=== PATIENT | male | born 1975 | race Caucasian/White ===

== ENCOUNTER → 2017-03-12 | Outpatient (CLI) | payer OTHER | LOC: M PLARAD 07:38 | DX: M51.26 Other intervertebral disc displacement, lumbar region (principal); M51.27 Other intervertebral disc displacement, lumbosacral region; M12.88 Other specific arthropathies, not elsewhere classified, other specified site | CPT/HCPCS: 72148 ==

== ENCOUNTER → 2017-05-07 | Outpatient (CLI) | payer OTHER | LOC: M PAIN 11:30 | DX: G89.29 Other chronic pain (principal); M54.5 Low back pain; M47.816 Spondylosis without myelopathy or radiculopathy, lumbar region; M47.817 Spondylosis without myelopathy or radiculopathy, lumbosacral region; M51.17 Intervertebral disc disorders with radiculopathy, lumbosacral region; G47.30 Sleep apnea, unspecified; F17.210 Nicotine dependence, cigarettes, uncomplicated; K21.9 Gastro-esophageal reflux disease without esophagitis; Z79.899 Other long term (current) drug therapy; Z88.0 Allergy status to penicillin; Z88.6 Allergy status to analgesic agent | CPT/HCPCS: G0463 ==

== ENCOUNTER → 2017-05-27 | Outpatient (CLI) | payer OTHER ==
[~2017-05-27] MED LIST: BUPIVACAINE HCL 0.25% 30 ML VIAL As Ordered; ISOVUE-M 300 61% 15ML VIAL (Q9967) As Ordered; LIDOCAINE 1% SDV INJ 30 ML VIAL As Ordered; TRIAMCINOLONE ACETONIDE SUSP 40 MG/ML VIAL (J3301) As Ordered; diazePAM 5 MG TAB As Ordered; oxyCODONE 5MG TAB As Ordered
== END ==
LOC: M PAIN 08:30
DX: G89.29 Other chronic pain (principal); M47.816 Spondylosis without myelopathy or radiculopathy, lumbar region; M47.817 Spondylosis without myelopathy or radiculopathy, lumbosacral region; I10 Essential (primary) hypertension; G47.30 Sleep apnea, unspecified; F17.210 Nicotine dependence, cigarettes, uncomplicated; Z79.899 Other long term (current) drug therapy; Z88.0 Allergy status to penicillin; Z88.6 Allergy status to analgesic agent
CPT/HCPCS: J3301

== ENCOUNTER → 2017-07-02 | Outpatient (CLI) | payer OTHER | LOC: M PAIN 09:00 | DX: M47.816 Spondylosis without myelopathy or radiculopathy, lumbar region (principal); M54.5 Low back pain; I10 Essential (primary) hypertension; G47.30 Sleep apnea, unspecified; F17.210 Nicotine dependence, cigarettes, uncomplicated; Z79.899 Other long term (current) drug therapy; Z88.0 Allergy status to penicillin; Z88.6 Allergy status to analgesic agent | CPT/HCPCS: G0463 ==

== ENCOUNTER → 2017-08-26 | Outpatient (CLI) | payer OTHER | LOC: M PAIN 08:30 | DX: M47.816 Spondylosis without myelopathy or radiculopathy, lumbar region (principal); M54.5 Low back pain; I10 Essential (primary) hypertension; F17.210 Nicotine dependence, cigarettes, uncomplicated; Z79.899 Other long term (current) drug therapy; Z88.8 Allergy status to other drugs, medicaments and biological substances | CPT/HCPCS: G0463 ==

== ENCOUNTER → 2017-10-07 | Outpatient (CLI) | payer OTHER | LOC: M PAIN 08:30 | DX: M47.816 Spondylosis without myelopathy or radiculopathy, lumbar region (principal); M54.5 Low back pain; I10 Essential (primary) hypertension; Z79.899 Other long term (current) drug therapy; Z88.0 Allergy status to penicillin; Z88.8 Allergy status to other drugs, medicaments and biological substances | CPT/HCPCS: G0463 ==

== ENCOUNTER → 2017-11-18 | Outpatient (CLI) | payer OTHER ==
[~2017-11-18] MED LIST changes: -TRIAMCINOLONE ACETONIDE SUSP 40 MG/ML VIAL (J3301) As Ordered; -diazePAM 5 MG TAB As Ordered; -oxyCODONE 5MG TAB As Ordered
== END ==
LOC: M PAIN 08:30
DX: M47.816 Spondylosis without myelopathy or radiculopathy, lumbar region (principal); M47.817 Spondylosis without myelopathy or radiculopathy, lumbosacral region; F17.210 Nicotine dependence, cigarettes, uncomplicated; I10 Essential (primary) hypertension; K21.9 Gastro-esophageal reflux disease without esophagitis; G47.30 Sleep apnea, unspecified; Z79.899 Other long term (current) drug therapy; Z88.0 Allergy status to penicillin; Z88.6 Allergy status to analgesic agent
CPT/HCPCS: Q9967

== ENCOUNTER → 2017-12-13 | Outpatient (CLI) | payer OTHER | LOC: M PAIN 09:45 | DX: M47.816 Spondylosis without myelopathy or radiculopathy, lumbar region (principal); M54.5 Low back pain; I10 Essential (primary) hypertension; G47.30 Sleep apnea, unspecified; F17.210 Nicotine dependence, cigarettes, uncomplicated; Z79.899 Other long term (current) drug therapy; Z88.0 Allergy status to penicillin; Z88.6 Allergy status to analgesic agent | CPT/HCPCS: G0463 ==

== ENCOUNTER → 2017-12-30 | Outpatient (CLI) | payer OTHER | LOC: M PAIN 08:45 | DX: G89.29 Other chronic pain (principal); M47.816 Spondylosis without myelopathy or radiculopathy, lumbar region; M47.817 Spondylosis without myelopathy or radiculopathy, lumbosacral region; I10 Essential (primary) hypertension; Z79.1 Long term (current) use of non-steroidal anti-inflammatories (NSAID); Z79.899 Other long term (current) drug therapy | CPT/HCPCS: Q9967 ==

== ENCOUNTER → 2018-01-13 | Outpatient (CLI) | payer OTHER | LOC: M PAIN 09:45 | DX: M47.816 Spondylosis without myelopathy or radiculopathy, lumbar region (principal); M54.5 Low back pain; I10 Essential (primary) hypertension; G47.30 Sleep apnea, unspecified; F17.210 Nicotine dependence, cigarettes, uncomplicated; E66.01 Morbid (severe) obesity due to excess calories; Z68.43 Body mass index [BMI] 50.0-59.9, adult; Z79.899 Other long term (current) drug therapy; Z88.0 Allergy status to penicillin; Z88.6 Allergy status to analgesic agent | CPT/HCPCS: G0463 ==

== ENCOUNTER → 2018-02-17 | Outpatient (CLI) | payer OTHER ==
[~2018-02-17] MED LIST changes: -BUPIVACAINE HCL 0.25% 30 ML VIAL As Ordered; +BUPIVACAINE HCL 0.25% 30 ML VIAL As Ordered ONE; +CIPR-249 PO; +DILT120C82 PO; +DILT1CAP48 PO; +FLAG500T PO; +GABA-843 PO; +IBUP80TA PO; -ISOVUE-M 300 61% 15ML VIAL (Q9967) As Ordered; -LIDOCAINE 1% SDV INJ 30 ML VIAL As Ordered; +LIDOCAINE 1% SDV INJ 30 ML VIAL As Ordered ONE; +LISI-538 PO; +LISI40TA PO; +METO100T5 PO; +METO1TAB33 PO; +NORCOTAB PO; +TRIAMCINOLONE ACETONIDE SUSP 40 MG/ML VIAL (J3301) As Ordered ONE; +VITA100067 PO; +ZOFR4TAB14 PO; +ZOLO100T PO
--- NOTE | 2018-02-17 18:09 | REP ---
Partial lumbar spine series: Single view. History: Radiofrequency injection procedure for pain. 53 seconds of fluoroscopy time is reported. Findings: A single last image hold fluoroscopically obtained spot radiograph documents needle position. Electronically Signed by Torito Dale MD 02/18/2018 10:11 A
--- NOTE | 2018-03-07 00:07 | ECWPNPC ---
PATIENT NAME: BRITTANIE BRADLEY : 1975 GENDER: MALE VISIT DATE: 02/17/2018 DISCHARGE DATE: 02/17/18 1606 VISIT LOCKED DATE TIME: PHYSICIAN: DAMARIS CHAKRABORTY MD RESOURCE: DAMARIS CHAKRABORTY MD REASON FOR APPOINTMENT 1. RIGHT RADIOFREQUENCY L4/5-L5/S1 HISTORY OF PRESENT ILLNESS HISTORY OF PRESENT ILLNESS: PAIN THE PATIENT DESCRIBES THE PAIN... THE PATIENT DESCRIBES THE PAIN... PAIN THE PATIENT DESCRIBES THE PAIN... THE PATIENT DESCRIBES THE PAIN... FALL RISK SCREENING: SCREENING :NO FALLS IN THE PAST YEAR :NO FALLS IN THE PAST YEAR SCREENING :NO FALLS IN THE PAST YEAR :NO FALLS IN THE PAST YEAR CURRENT MEDICATIONS TAKING METOPROLOL SUCCINATE 100 MG TABLET EXTENDED RELEASE ORALLY DAILY, NOTES: 02/17/18 AM TAKING LISINOPRIL 40 MG TABLET 1 TABLET ORALLY ONCE A DAY, NOTES: 02/16/18 TAKING CHOLECALCIFEROL 1000 UNIT TABLET 2 CAPSULES ORALLY ONCE A DAY, NOTES: 02/17/18 AM TAKING IBUPROFEN 800 MG TABLET 1 TABLET WITH FOOD OR MILK NEEDED ORALLY FOR PAIN EVERY 8 HOURS NEEDED MDD2, NOTES: 02/16/18 TAKING GABAPENTIN 300 MG CAPSULE 1 CAPSULE BEFORE BEDTIME ORALLY ONCE A DAY, NOTES: 02/16/18 TAKING DILTIAZEM HCL 120 MG TABLET 1 TABLET BEFORE MEALS ORALLY DAILY, NOTES: 02/17/18 TAKING ZOLOFT 25 MG TABLET 1 TABLET ORALLY ONCE A DAY, NOTES: 02/17/18 AM NOT-TAKING CYMBALTA 60 MG CAPSULE DELAYED RELEASE PARTICLES 1 CAPSULE ORALLY ONCE A DAY MEDICATION LIST REVIEWED AND RECONCILED WITH THE PATIENT PAST MEDICAL HISTORY HYPERTENSION REFLUX SLEEP APNEA CHRONIC BACK PAIN ALLERGIES PENICILLIN (FOR ALLERGIES USE ONLY): ANAPHALACTIC ASPIRIN: NOSE BLEEDS SURGICAL HISTORY BILATERAL CARPEL TUNNEL 2000 COLONOSCOPY 2016 SOCIAL HISTORY GENERAL: TOBACCO USE ARE YOU A:CURRENT SMOKER ARE YOU INTERESTED IN QUITTING?NOT READY TO QUIT COUNSELED THE PATIENT ON SMOKING EFFECTS, EDUCATION HCSEAUEE13/20/2018 HOW MANY CIGARETTES A DAY DO YOU SMOKE?21-30 HOW SOON AFTER YOU WAKE UP DO YOU SMOKE YOUR FIRST CIGARETTE?WITHIN 5 MIN HOW OFTEN DO YOU SMOKE CIGARETTES?EVERY DAY PATIENT COUNSELED ON THE DANGERS OF TOBACCO USE AND URGED TO QUIT:02/17/2018 ALCOHOL SCREENING DID YOU HAVE A DRINK CONTAINING ALCOHOL IN THE PAST YEAR?YES HOW MANY DRINKS DID YOU HAVE ON A TYPICAL DAY WHEN YOU WERE DRINKING IN THE PAST YEAR?1 OR 2 (0 POINTS) HOW OFTEN DID YOU HAVE A DRINK CONTAINING ALCOHOL IN THE PAST YEAR?MONTHLY OR LESS (1 POINT) POINTS1 INTERPRETATIONNEGATIVE RECREATIONAL DRUG USE DRUG USE?YES MARIJUANA, ON A RARE OCCASSION. 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 DIET: REGULAR. EXERCISE: WALKS. MARITAL STATUS: , , . OTHERS AT HOME: SPOUSE, , OTHER RELATIVE. NEW PATIENT PAIN DIARY SPOUSE, , OTHER RELATIVE. PAIN CLINIC PFS, CLERGY, PUBLIC HEALTH REFERRALS PFS REFERRAL NEEDED?NO CLERGY REFERRAL NEEDED?NO PUBLIC HEALTH REFERRAL NEEDED?NO WAS THE PROVIDER NOTIFIED OF ANY PERTINENT INFO?YES HAS THE PATIENT BEEN EDUCATED REGARDING HIS/HER PLAN OF CARE?YES HAS THE PATIENT BEEN EDUCATED REGARDING PAIN, THE RISK FOR PAIN, THE IMPORTANCE OF EFFECTIVE PAIN MANAGEMENT, AND THE PAIN ASSESSMENT PROCESS?YES ADVANCE DIRECTIVE ADVANCE DIRECTIVE DISCUSSED WITH PATIENT:YES PT REFUSES INFORMATION REVIEWED WITH PATIENT 12/13/17 1021 JS. HOSPITALIZATION/MAJOR DIAGNOSTIC PROCEDURE FELL, HAIRLINE FRACTURE SKULL AGE 8 GASTROENTERITIS AGE 18 REVIEW OF SYSTEMS REVIEWED BY: PROVIDER: , . CONSTITUTIONAL: ANY CHANGE IN YOUR MEDICAL CONDITION? NO, NO . CHILLS NO, NO . FEVER NO, NO . INFECTION: DO YOU HAVE NEW INFECTIONS? NO, NO . DO YOU HAVE HISTORY OF MRSA? NO, NO . MUSCULOSKELETAL: ANY NEW PATTERNS OF PAIN OR NUMBNESS? NO, NO . GASTROENTEROLOGY: ANY NEW CHANGE IN BOWEL CONTROL? NO, NO . GENITOURINARY: ANY NEW CHANGE IN BLADDER CONTROL? NO, NO . IS THERE A CHANCE YOU COULD BE ? NO, NO . HEMATOLOGY/LYMPH: DO YOU TAKE ANY BLOOD THINNERS? (FOR EXAMPLE- COUMADIN, PLAVIX, AGGRENOX, PLATEL, PRADAXA, OR XARELTO) NO, NO . WHEN WAS YOUR LAST DOSE? DATE: TIME: , DATE: TIME: . NEUROLOGY: HAVE YOU FALLEN IN THE PAST 6 MONTHS? NO, NO . ANY NEW EXTREMITY NUMBNESS OR WEAKNESS? YES, BILAT LEG PAIN AND WEAKNESS, NO . CARDIOLOGY: DO YOU HAVE A PACEMAKER OR DEFIBRILLATOR? NO, NO . RESPIRATORY: HAVE YOU BEEN SICK IN THE PAST WEEK? YES, URI RESOLVING RESOLVING, NO . FEVER NO, NO . FLU LIKE SYMPTOMS? NO, NO . COUGH YES, NON-PRODUCTIVE, NO . INTEGUMENTARY: DO YOU HAVE ANY RASHES OR OPEN SORES? NO, NO . ALLERGIC/IMMUNO: ARE YOU ALLERGIC TO SHELLFISH OR IV DYE? NO, NO . ANY NEW ALLERGIES? NO, NO . PSYCHIATRIC: DO YOU HAVE THOUGHTS OF HURTING YOURSELF OR SOMEONE ELSE? NO, NO . ARE YOU ABUSED, NEGLECTED, OR IN AN UNSAFE ENVIRONMENT? NO, NO . ENDOCRINOLOGY: ARE YOU DIABETIC? NO, NO . OTHER: DO YOU NEED ANY PRESCRIPTIONS? NO, NO . IF YES, PLEASE LIST: ____, ____ . ANY NEW PROBLEMS WITH YOUR MEDICATIONS? NO, NO . WHEN DID YOU LAST EAT? 02/16/18, ____ . WHEN DID YOU LAST DRINK? 02/17/18 1000, ____ . WHAT DID YOU LAST DRINK? COFFEE WITH CREAM, ____ . NAME OF PERSON DRIVING YOU HOME? FIDENCIO, ____ . DO YOU HAVE ANY OTHER QUESTIONS OR CONCERNS NO, NO . VITAL SIGNS WT 361.4 LBS, HT 70 IN, BMI 51.85 INDEX, BP 140/86 MM HG, HR 74 /MIN, RR 18 /MIN, TEMP 97.2 F, OXYGEN SAT % 96%, NA INITIALS SC 13:04, REVIEWED BY: EM. ASSESSMENTS SPONDYLOSIS OF LUMBAR REGION WITHOUT MYELOPATHY OR RADICULOPATHY - M47.816 (PRIMARY) SPONDYLOSIS OF LUMBOSACRAL REGION WITHOUT MYELOPATHY OR RADICULOPATHY - M47.817 PROCEDURES PN RADIOFREQUENCY PRE PROCEDURE DIAGNOSES 1. LUMBAR SPONDYLOSIS. 2. LUMBOSACRAL SPONDYLOSIS POST PROCEDURE DIAGNOSES 1. LUMBAR SPONDYLOSIS. 2. LUMBOSACRAL SPONDYLOSIS PROCEDURE RIGHT L4-L5 AND RIGHT L5-S1 LUMBAR FACET RADIOFREQUENCY SURGEON DR. DAMARIS CHAKRABORTY MECHANICAL TEST ENGINEER NONE ANESTHESIA LOCAL PRE PROCEDURE REPORT THE PATIENT HAS HISTORY OF CHRONIC LOW BACK PAIN. I EVALUATE THE PATIENT AND REVIEWED THE CHART. I WENT OVER THE RISKS, ALTERNATIVES, AND BENEFITS ASSOCIATED WITH THIS PROCEDURE. THE PATIENT WOULD LIKE TO PROCEED AND GIVE CONSENT TO PERFORMED THE PROCEDURE. THE PATIENT DENIES UNEXPLAINABLE WEIGHT LOSS, FEVER, CHILLS, OR NEW CHANGES IN URINARY OR BOWEL CONTROL DESCRIPTION OF PROCEDURE THE PATIENT WAS BROUGHT TO THE PROCEDURE ROOM AND PLACED IN THE PRONE POSITION. THE LUMBOSACRAL AREA WAS CLEANED WITH CHLORAPREP SOLUTION AND DRAPED ASEPTICALLY. THE PROCEDURE WAS DONE UNDER STERILE CONDITIONS. I CHECKED LATERALITY AND THE LEVEL WHERE THE PROCEDURE WAS GOING TO BE PERFORMED WITH THE PATIENT AND THE SUPPORTING STAFF AT THE MOMENT OF THE TIME OUT IN THE PROCEDURE ROOM. UNDER FLUOROSCOPIC GUIDANCE, TARGETS WERE SELECTED AT THE INTERSECTION OF THE RIGHT TRANSVERSE PROCESS OF L4, L5 AND ALA OF S1 WITH ITS RESPECTIVE SUPERIOR ARTICULAR PROCESS. LIDOCAINE WAS USED TO NUMB THE SKIN AND THE SUBCUTANEOUS TISSUE BELOW IT. RADIOFREQUENCY NEEDLES 22-GAUGE 15 CM LONG WITH 10 MM ACTIVE CURVE TIP WERE ADVANCED UNDER FLUOROSCOPIC GUIDANCE AND FOLLOWING PATIENT FEEDBACK UNTIL THE TARGET AREA WAS REACHED. POSITION OF THE NEEDLES WAS VERIFIED WITH AP AND LATERAL VIEWS. AFTER PROPER POSITION OF THE NEEDLE WAS ACHIEVED, WE WORKED WITH THE RIGHT SELECTED MEDIAN BRANCHES OF L3, L4 AND THE DORSAL RAMI OF L5. WE MEASURED THE CORRESPONDING IMPEDANCES, SENSORY STIMULATION AND MOTOR RESPONSES INDICATED IN THE RADIOFREQUENCY WORKSHEET. POSITION OF THE NEEDLES WAS VERIFIED AGAIN WITH AP AND LATERAL VIEWS. LIDOCAINE 1%, 2 ML, WAS INJECTED AT EACH LEVEL. RADIOFREQUENCY WAS DONE AT EACH LEVEL AT 80 DEGREES FOR 90 SECONDS. AFTER RADIOFREQUENCY WAS DONE, THE PATIENT RECEIVED BUPIVACAINE 0.125% 1 CC WITH KENALOG 5 MG AT EACH SITE. THERE WAS NO EVIDENCE OF BLOOD, PARESTHESIA OR CEREBROSPINAL FLUID DURING THE PROCEDURE. THE PATIENT WAS SENT TO THE RECOVERY ROOM. THE PATIENT WAS MOVING THE EXTREMITIES AND DOING WELL. THERE WAS NO COMPLICATION DURING THE PROCEDURE. FLUOROSCOPY TIME WAS 53 SECONDS POST PROCEDURE NOTE THE PATIENT WILL BE SEEN IN A FOLLOW UP IN THE NEXT FEW WEEKS. INSTRUCTIONS WERE GIVEN, QUESTIONS WERE ANSWERED, AND THE PATIENT EXPRESSED UNDERSTANDING AND AGREES WITH THE PLAN. I, DENTON COWAN, DOCUMENTED THE ABOVE INFORMATION ACTING A SCRIBE FOR DR. CHAKRABORTY. I HAVE REVIEWED THE ABOVE DOCUMENT, WRITTEN BY DENTON COWAN SCRIBGabriella AND I VERIFY THAT IT IS ACCURATE. DIAGNOSTIC IMAGING [facility] FACET BLOCK (PAIN)[id number] PROCEDURE CODES 6045F RADXPS IN END [id number] PXD 46678 DESTROY LUMB/SAC FAC[place] JNT, [place] [address] DESTROY L/S FACET JNT ADDL, MODIFIERS: RT DISPOSITION & COMMUNICATION FOLLOW UP 3 WEEKS ELECTRONICALLY SIGNED BY DAMARIS CHAKRABORTY MD, MD ON 03/06/2018 AT 02:30 PM EST DISCLAIMER : THIS IS A VISIT SUMMARY EXTRACTED FROM THE [facility] CHART. IT IS NOT A COPY OF THE [facility] PROGRESS NOTE. RIMMA
== END ==
LOC: M PAIN 13:00
PROVIDERS: ATTEND Anesthesiology
DX: G89.29 Other chronic pain (principal); M47.816 Spondylosis without myelopathy or radiculopathy, lumbar region; M47.817 Spondylosis without myelopathy or radiculopathy, lumbosacral region; I10 Essential (primary) hypertension; G47.30 Sleep apnea, unspecified; F17.210 Nicotine dependence, cigarettes, uncomplicated; E66.01 Morbid (severe) obesity due to excess calories; Z68.43 Body mass index [BMI] 50.0-59.9, adult; Z79.899 Other long term (current) drug therapy; Z88.0 Allergy status to penicillin; Z88.6 Allergy status to analgesic agent; Z87.820 Personal history of traumatic brain injury
CPT/HCPCS: 64635; 64636; J3301

== ENCOUNTER 2018-02-23 09:34 | Inpatient (IN) | payer OTHER ==
[2018-02-23 10:00] LABS: BASO # 0.1 10^3/uL (0.0-0.2); BASO % 0.4 % (0.0-1.0); HEMATOCRIT 48.3 % (42.0-52.0); HEMOGLOBIN 16.5 g/dl (13.5-17.5); IMMATURE GRANULOCYTE % 0.9 % (0-3.0); LYMPH # 1.9 10^3/uL (1.5-4.5); LYMPH % 8.5 % (24.0-44.0); MEAN CORPUSCULAR HEMOGLOBIN 31.3 pg (27.0-33.0); MEAN CORPUSCULAR HGB CONC 34.2 g/dl (32.0-36.5); MEAN CORPUSCULAR VOLUME 91.7 fl (80.0-96.0); MONO # 1.7 10^3/uL (0.0-0.8); MONO % 7.8 % (0.0-5.0); NEUTROPHILS # 18.3 10^3/uL (1.8-7.7); NEUTROPHILS % 82.4 % (36.0-66.0); PLATELET COUNT, AUTOMATED 218 10^3/uL (150-450); RED BLOOD COUNT 5.27 10^6/uL (4.30-6.10); WHITE BLOOD COUNT 22.2 10^3/uL (4.0-10.0)
[2018-02-23] MEDS: NS 1,000 ML IV ×2 (10:14→18:13)
[2018-02-23] MEDS: ONDANSETRON 4MG/2ML VIAL (J2405) IV (10:14)
[2018-02-23] MEDS: MORPHINE 4 MG/ML 1ML VIAL/SYRINGE (J2270) IV ×4 (10:14→23:05)
[2018-02-23] MEDS: CIPROFLOXACIN 400 MG in APPROPRIATE DILUENT 1 EA IV ×2 (10:14→22:48)
[2018-02-23] MEDS: metroNIDAZOLE 500 MG in APPROPRIATE DILUENT 1 EA IV ×2 (11:22→18:24)
[2018-02-23] MEDS ORDERED: MORPHINE 4 MG/ML 1ML VIAL/SYRINGE (J2270) As Ordered (12:48)
[2018-02-23] MEDS ORDERED: PROPOFOL 200 MG/20 ML VIAL As Ordered ×2 (14:58→15:14)
[2018-02-23] MEDS ORDERED: ROCURONIUM BROMIDE 50 MG/5 ML VIAL As Ordered (14:58)
[2018-02-23] MEDS ORDERED: ONDANSETRON 4MG/2ML VIAL (J2405) As Ordered (14:58)
[2018-02-23] MEDS ORDERED: fentaNYL 250 MCG/5 ML INJECTION (J3010) As Ordered (14:58)
[2018-02-23] MEDS ORDERED: dexameTHASONE 4 MG/ML 1ML VIAL (J1100) As Ordered (14:58)
[2018-02-23] MEDS ORDERED: LIDOCAINE 2% INJ 100 MG/5 ML SDV (FOR ANES.) As Ordered (14:58)
[2018-02-23] MEDS ORDERED: MIDAZOLAM INJ 2 MG/2 ML VIAL (J2250) As Ordered (14:59)
[2018-02-23] MEDS: ZOSYN 3.375 GM VIAL (J2543) As Ordered ×2 (15:24→15:25)
[2018-02-23] MEDS ORDERED: SUGAMMADEX SODIUM 500 MG/5 ML VIAL (BRIDION) As Ordered (15:48)
[2018-02-23] MEDS ORDERED: PHENYLephrine HCL 500 MCG/5 ML (100MCG/ML) SYRINGE (J2370) As Ordered (15:48)
[2018-02-23] MEDS ORDERED: KETOROLAC 60 MG/2 ML VIAL (J1885) As Ordered (16:21)
[2018-02-23] MEDS: BUPIVACAINE/EPIN 0.25% 30 ML VIAL As Ordered (16:24)
[2018-02-23] MEDS ORDERED: fentaNYL 100 MCG/2 ML INJECTION (J3010) As Ordered (16:40)
[2018-02-23] MEDS ORDERED: PROMETHAZINE INJ 25 MG/ML VIAL (J2550) IV (16:45)
[2018-02-23] MEDS ORDERED: MORPHINE 4 MG/ML 1ML VIAL/SYRINGE (J2270) IV (16:45)
[2018-02-23] MEDS ORDERED: METOCLOPRAMIDE INJ 10MG/2ML VIAL (J2765) IV ×2 (16:45→17:15)
[2018-02-23] MEDS ORDERED: NORCO, ANEXSIA 5/325MG TABLET (HYDROcodone/ACETAMINOPHEN) PO (16:45)
[2018-02-23] MEDS ORDERED: ONDANSETRON 4MG/2ML VIAL (J2405) IV ×2 (16:45→17:15)
[2018-02-23] MEDS ORDERED: hydrALAZINE INJ 20 MG/ML VIAL As Ordered (17:00)
[2018-02-23] MEDS: hydrALAZINE INJ 20 MG/ML VIAL IV ×2 (17:02→17:10)
[2018-02-23] MEDS ORDERED: fentaNYL 100 MCG/2 ML INJECTION (J3010) IV (17:15)
[2018-02-23] MEDS: LR 1,000 ML IV (17:15)
[2018-02-23] MEDS: PERCOCET 5MG/325MG TAB PO (17:32)
[2018-02-23] MEDS: METOPROLOL SUCC (TopROL XL) 100MG *XL* TAB PO (18:00)
[2018-02-23] MEDS: SERTRALINE HCL 50 MG TAB PO (18:25)
[2018-02-23] MEDS: PANTOPRAZOLE 40MG INJ (PROTONIX) (C9113) IV (18:25)
[2018-02-23] MEDS: IPRATROPIUM 0.5MG/ALBUTEROL 2.5MG INH SOL UD 3ML (DUONEB)(J7620) NEB (20:00)
[2018-02-23] MEDS: NICOTINE 21MG/24HR 1 EA TRANSDERMAL TD (20:17)
[2018-02-23] MEDS: LISINOPRIL 20 MG TAB PO (20:17)
[2018-02-23] MEDS: NORCO, ANEXSIA 5/325MG TABLET (HYDROcodone/ACETAMINOPHEN) PO (20:19)
[2018-02-24] MEDS: KETOROLAC 30 MG/ML VIAL (J1885) IV ×3 (01:11→18:02)
[2018-02-24] MEDS: NS 1,000 ML IV (01:12)
[2018-02-24] MEDS: metroNIDAZOLE 500 MG in APPROPRIATE DILUENT 1 EA IV ×3 (03:26→18:03)
[2018-02-24] MEDS: NORCO, ANEXSIA 5/325MG TABLET (HYDROcodone/ACETAMINOPHEN) PO ×2 (03:27→18:04)
[2018-02-24 06:45] LABS: HEMATOCRIT 48.4 % (42.0-52.0); HEMOGLOBIN 16.5 g/dl (13.5-17.5); MEAN CORPUSCULAR HEMOGLOBIN 31.6 pg (27.0-33.0); MEAN CORPUSCULAR HGB CONC 34.1 g/dl (32.0-36.5); MEAN CORPUSCULAR VOLUME 92.7 fl (80.0-96.0); PLATELET COUNT, AUTOMATED 237 10^3/uL (150-450); RED BLOOD COUNT 5.22 10^6/uL (4.30-6.10); RED CELL DISTRIBUTION WIDTH 13.2 % (11.5-14.5); WHITE BLOOD COUNT 25.7 10^3/uL (4.0-10.0)
[2018-02-24 07:15] LABS: ANION GAP 6 MEQ/L (8-16); BLOOD UREA NITROGEN 26 MG/DL (7-18); CALCIUM LEVEL 8.3 MG/DL (8.5-10.1); CARBON DIOXIDE LEVEL 23 MEQ/L (21-32); CHLORIDE LEVEL 106 MEQ/L (98-107); CREATININE FOR GFR 1.11 MG/DL (0.70-1.30); GLOMERULAR FILTRATION RATE > 60.0 (>60); GLUCOSE, FASTING 121 MG/DL (70-100); POTASSIUM SERUM 4.8 MEQ/L (3.5-5.1); SODIUM LEVEL 135 MEQ/L (136-145)
[2018-02-24] MEDS: IPRATROPIUM 0.5MG/ALBUTEROL 2.5MG INH SOL UD 3ML (DUONEB)(J7620) NEB ×4 (07:36→20:00)
[2018-02-24] MEDS: PANTOPRAZOLE 40MG INJ (PROTONIX) (C9113) IV (08:49)
[2018-02-24] MEDS: METOPROLOL SUCC (TopROL XL) 100MG *XL* TAB PO (08:50)
[2018-02-24] MEDS: CIPROFLOXACIN 400 MG in APPROPRIATE DILUENT 1 EA IV ×2 (08:50→21:09)
[2018-02-24] MEDS: SERTRALINE 100 MG TAB PO (08:50)
[2018-02-24] MEDS: GABAPENTIN 300 MG CAP PO (08:50)
[2018-02-24] MEDS: NICOTINE 21MG/24HR 1 EA TRANSDERMAL TD (08:51)
[2018-02-24] MEDS: LISINOPRIL 20 MG TAB PO (21:09)
[2018-02-25] MEDS: KETOROLAC 30 MG/ML VIAL (J1885) IV (01:17)
[2018-02-25] MEDS: metroNIDAZOLE 500 MG in APPROPRIATE DILUENT 1 EA IV (03:53)
[2018-02-25] MEDS: NORCO, ANEXSIA 5/325MG TABLET (HYDROcodone/ACETAMINOPHEN) PO (03:54)
[2018-02-25 05:49] LABS: HEMATOCRIT 44.9 % (42.0-52.0); MEAN CORPUSCULAR HEMOGLOBIN 31.2 pg (27.0-33.0); MEAN CORPUSCULAR HGB CONC 33.4 g/dl (32.0-36.5); MEAN CORPUSCULAR VOLUME 93.3 fl (80.0-96.0); PLATELET COUNT, AUTOMATED 206 10^3/uL (150-450); RED BLOOD COUNT 4.81 10^6/uL (4.30-6.10); RED CELL DISTRIBUTION WIDTH 13.2 % (11.5-14.5); WHITE BLOOD COUNT 18.7 10^3/uL (4.0-10.0)
[2018-02-25 06:16] LABS: ANION GAP 6 MEQ/L (8-16); BLOOD UREA NITROGEN 31 MG/DL (7-18); CALCIUM LEVEL 8.1 MG/DL (8.5-10.1); CARBON DIOXIDE LEVEL 25 MEQ/L (21-32); CHLORIDE LEVEL 108 MEQ/L (98-107); CREATININE FOR GFR 0.92 MG/DL (0.70-1.30); GLOMERULAR FILTRATION RATE > 60.0 (>60); GLUCOSE, FASTING 109 MG/DL (70-100); POTASSIUM SERUM 4.1 MEQ/L (3.5-5.1); SODIUM LEVEL 139 MEQ/L (136-145)
[2018-02-25] MEDS: IPRATROPIUM 0.5MG/ALBUTEROL 2.5MG INH SOL UD 3ML (DUONEB)(J7620) NEB ×2 (08:00→11:35)
[2018-02-25] MEDS: PANTOPRAZOLE 40MG INJ (PROTONIX) (C9113) IV (08:14)
[2018-02-25] MEDS: METOPROLOL SUCC (TopROL XL) 100MG *XL* TAB PO (08:14)
[2018-02-25] MEDS: SERTRALINE 100 MG TAB PO (08:14)
[2018-02-25] MEDS: NICOTINE 21MG/24HR 1 EA TRANSDERMAL TD (08:15)
[2018-02-25] MEDS: GABAPENTIN 300 MG CAP PO (08:15)
[2018-02-25] MEDS: CIPROFLOXACIN 400 MG in APPROPRIATE DILUENT 1 EA IV (09:29)
== END 2018-02-25 11:15 | disposition home or self-care (01) | DRG 340 ==
LOC: M MS5PR 02-25 11:15 → M ED 09:34 → M SDC 11:00 → M MS5PR 16:36
PROC: 0DTJ4ZZ Resection of Appendix, Percutaneous Endoscopic Approach (ICD-10-PCS; principal; 2018-02-23 11:35)
DX: K35.32 Acute appendicitis with perforation, localized peritonitis, and gangrene, without abscess (principal)

== ENCOUNTER → 2018-03-09 | Outpatient (REF) ==
[~2018-03-09] MED LIST changes: -BUPIVACAINE HCL 0.25% 30 ML VIAL As Ordered ONE; -LIDOCAINE 1% SDV INJ 30 ML VIAL As Ordered ONE; -TRIAMCINOLONE ACETONIDE SUSP 40 MG/ML VIAL (J3301) As Ordered ONE
--- NOTE | 2018-03-10 01:55 | REP ---
Clinical: Pain in disability Technique: AP, lateral, bilateral oblique and sunrise views left knee . Findings: The osseous structures and joint spaces are intact and normal. There is no evidence for acute fracture or dislocation. No joint effusion is appreciated. Surrounding soft tissues are unremarkable. No subcutaneous emphysema or radiodense foreign body. Impression: Age-appropriate examination. No acute fracture or dislocation. Electronically Signed by Augustus Johnson MD 03/10/2018 01:46 A
--- NOTE | 2018-03-10 02:17 | REP ---
Clinical: Pain and disability. Technique: AP, lateral, coned-down views of the lumbar spine. Findings: Three views of the lumbosacral spine demonstrate satisfactory alignment and lordosis without acute fracture / compression injury or subluxation. Mild degenerative change include early anterior spurring with minimal endplate sclerosis. Subtle hypertrophic facet changes at L5-S1 with minimal disc space narrowing also suggested. Impression: Mild multilevel degenerative changes most notably at L5-S1. No acute fracture / compression injury or subluxation. Electronically Signed by Augustus Johnson MD 03/10/2018 02:09 A
== END ==
LOC: M SMT 12:50
PROVIDERS: ATTEND Internal Medicine
DX: Z02.71 Encounter for disability determination (principal); M51.37 Other intervertebral disc degeneration, lumbosacral region

== ENCOUNTER 2018-04-08 08:35 | Day surgery (SDC) | payer OTHER ==
[~2018-04-08] VITALS: Ht 177.8 cm; Wt 158.3 kg
[~2018-04-08 08:35] MED LIST changes: +DICL1GEL3 TOP; +HYDR-643 PO; +LIDOCAINE 2% INJ 100 MG/5 ML SDV (FOR ANES.) As Ordered ONE; +NS 1,000 ML IV ONE; +PROPOFOL 200 MG/20 ML VIAL As Ordered ONE; +fentaNYL 100 MCG/2 ML INJECTION (J3010) As Ordered ONE
--- NOTE | 2018-04-08 10:04 | ROOR ---
Patient Name: Michel Hinson Procedure Date: 04/08/2018 9:45 AM Date of : 1975 Age: 43 Room: [facility] Gender: Male Note Status: Finalized Procedure: Upper Endoscopy + Biopsies Indications: Heartburn, Exclusion of Schofield's esophagus Providers: Gumaro Pandey MD Referring MD: Romelia Kay Requesting Provider: Medicines: Monitored Anesthesia Care Complications: No immediate complications. Procedure: Pre-Anesthesia Assessment: - The heart rate, respiratory rate, oxygen saturations, blood pressure, adequacy of pulmonary ventilation, and response to care were monitored throughout the procedure. The Endoscope was introduced through the mouth, and advanced to the second part of duodenum. The upper GI endoscopy was accomplished without difficulty. The patient tolerated the procedure well. Findings: The Z-line was regular and was found 40 cm from the incisors. Multiple biopsies were obtained with cold forceps for evaluation to rule out Schofield's Esophagus randomly at the gastroesophageal junction. No other significant abnormalities were identified in a careful examination of the stomach. Biopsies were taken with a cold forceps in the gastric antrum for Helicobacter pylori testing. The exam was otherwise without abnormality. Impression: - Z-line regular, 40 cm from the incisors. - The examination was otherwise normal. - Multiple biopsies were obtained at the gastroesophageal junction. - Biopsies were taken with a cold forceps for Helicobacter pylori testing. - The examination was otherwise normal. Recommendation: - Patient has a contact number available for emergencies. The signs and symptoms of potential delayed complications were discussed with the patient. Return to normal activities tomorrow. Written discharge instructions were provided to the patient. - High fiber diet. - Discharge patient to home. - Follow an antireflux regimen. - Continue present medications. - Await pathology results. - Telephone GI clinic for pathology results in 1 week. - Return to referring physician. - The findings and recommendations were discussed with the patient's family. Gumaro Pandey MD Gumaro Pandey MD 04/08/2018 10:04:20 AM This report has been signed electronically. Number of Addenda: 0 Note Initiated On: 04/08/2018 9:45 AM Estimated Blood Loss: Estimated blood loss: none.
--- NOTE | 2018-04-08 10:33 | ROOR ---
Patient Name: Michel Hinson Procedure Date: 04/08/2018 9:46 AM Date of : 1975 Age: 43 Room: [facility] Gender: Male Note Status: Finalized Procedure: Total Colonoscopy to Cecum + Cold/Biopsy Snare Poypectomy + Biopsies Indications: Lower abdominal pain, Clinically significant diarrhea of unexplained origin Providers: Gumaro Pandey MD Referring MD: Romelia Kay Requesting Provider: Medicines: Monitored Anesthesia Care Complications: No immediate complications. Procedure: Pre-Anesthesia Assessment: - The heart rate, respiratory rate, oxygen saturations, blood pressure, adequacy of pulmonary ventilation, and response to care were monitored throughout the procedure. The Colonoscope was introduced through the anus and advanced to the cecum, identified by appendiceal orifice and ileocecal valve. The colonoscopy was performed without difficulty. The patient tolerated the procedure well. The quality of the bowel preparation was excellent. Findings: The perianal and digital rectal examinations were normal. Non-bleeding internal hemorrhoids were found during retroflexion. The hemorrhoids were small and Grade I (internal hemorrhoids that do not prolapse). Multiple sessile polyps were found in the ascending colon. The polyps were small in size. These polyps were removed with a cold biopsy forceps. Resection and retrieval were complete. Biopsies for histology were taken with a cold forceps from the ascending colon, transverse colon and descending colon for evaluation of microscopic colitis. The exam was otherwise without abnormality on direct and retroflexion views. A small polyp was found in the ascending colon. The polyp was sessile. The polyp was removed with a cold snare. Resection and retrieval were complete. Impression: - Non-bleeding internal hemorrhoids. - Multiple small polyps in the ascending colon, removed with a cold biopsy forceps. Resected and retrieved. Biopsied. - The examination was otherwise normal on direct and retroflexion views. - One small polyp in the ascending colon, removed with a cold snare. Resected and retrieved. - The exam was otherwise normal to the cecum. Recommendation: - Patient has a contact number available for emergencies. The signs and symptoms of potential delayed complications were discussed with the patient. Return to normal activities tomorrow. Written discharge instructions were provided to the patient. - High fiber diet. - Discharge patient to home. - Continue present medications. - Await pathology results. - Telephone GI clinic for pathology results in 1 week. - Repeat colonoscopy in 5 years for surveillance. - Return to referring physician. - The findings and recommendations were discussed with the patient's family. Gumaro Pandey MD Gumaro Pandey MD 04/08/2018 10:33:07 AM This report has been signed electronically. Number of Addenda: 0 Note Initiated On: 04/08/2018 9:46 AM Estimated Blood Loss: Estimated blood loss: none.
[2018-04-08 11:06] VITALS: BP 144/90
== END 2018-04-08 11:08 | disposition home or self-care (01) ==
LOC: M OPP 08:35
PROVIDERS: ATTEND Internal Medicine Gastroenterology
DX: D12.2 Benign neoplasm of ascending colon (principal); K64.0 First degree hemorrhoids; R19.7 Diarrhea, unspecified; R12 Heartburn; K29.70 Gastritis, unspecified, without bleeding; R10.30 Lower abdominal pain, unspecified
CPT/HCPCS: 43239; 45380; 45385; 88305; J3010

== ENCOUNTER → 2018-04-19 | Outpatient (CLI) | payer OTHER ==
[~2018-04-19] MED LIST changes: -LIDOCAINE 2% INJ 100 MG/5 ML SDV (FOR ANES.) As Ordered ONE; -NS 1,000 ML IV ONE; -PROPOFOL 200 MG/20 ML VIAL As Ordered ONE; -fentaNYL 100 MCG/2 ML INJECTION (J3010) As Ordered ONE
--- NOTE | 2018-05-02 00:45 | ECWPNPC ---
PATIENT NAME: BRITTANIE BRADLEY : 1975 GENDER: MALE VISIT DATE: 04/19/2018 DISCHARGE DATE: 04/19/18 1625 VISIT LOCKED DATE TIME: PHYSICIAN: BRE CASTELLANOS RESOURCE: BRE CASTELLANOS REASON FOR APPOINTMENT 1. POST RF HISTORY OF PRESENT ILLNESS HISTORY OF PRESENT ILLNESS: HERE FOR LEFT LOW BACK PAIN.PAIN HAS AGGREVATED LATELY.RATING PAIN VAS 7/10.PAIN IS CONTINUOUS AND IS WAKING HIM .BILATERAL LOW BACK IS CHIEF AREA OF PAIN. PAIN THE PATIENT DESCRIBES THE PAIN... FALL RISK SCREENING: SCREENING : NO FALLS IN THE PAST YEAR. CURRENT MEDICATIONS TAKING METOPROLOL SUCCINATE 100 MG TABLET EXTENDED RELEASE ORALLY DAILY TAKING LISINOPRIL 40 MG TABLET 1 TABLET ORALLY ONCE A DAY TAKING CHOLECALCIFEROL 1000 UNIT TABLET 2 CAPSULES ORALLY ONCE A DAY TAKING IBUPROFEN 800 MG TABLET 1 TABLET WITH FOOD OR MILK NEEDED ORALLY FOR PAIN EVERY 8 HOURS NEEDED MDD2 TAKING GABAPENTIN 300 MG CAPSULE 1 CAPSULE BEFORE BEDTIME ORALLY ONCE A DAY TAKING DILTIAZEM HCL 120 MG TABLET 1 TABLET BEFORE MEALS ORALLY DAILY TAKING ZOLOFT 25 MG TABLET 1 TABLET ORALLY ONCE A DAY TAKING HYDROXYZINE HCL 10 MG TABLET 1 TABLET NEEDED ORALLY DAILY TAKING VOLTAREN 1 % GEL TRANSDERMAL DAILY PRN NOT-TAKING CYMBALTA 60 MG CAPSULE DELAYED RELEASE PARTICLES 1 CAPSULE ORALLY ONCE A DAY MEDICATION LIST REVIEWED AND RECONCILED WITH THE PATIENT PAST MEDICAL HISTORY HYPERTENSION REFLUX SLEEP APNEA CHRONIC BACK PAIN ALLERGIES PENICILLIN (FOR ALLERGIES USE ONLY): ANAPHALACTIC ASPIRIN: NOSE BLEEDS SURGICAL HISTORY BILATERAL CARPEL TUNNEL 2000 COLONOSCOPY 2016 APPENDECTOMY 01/2018 FAMILY HISTORY FATHER: ALIVE MOTHER: ALIVE SIBLINGS: UNKNOWN DAUGHTER(S): ALIVE SOCIAL HISTORY GENERAL: TOBACCO USE ARE YOU A:CURRENT SMOKER ARE YOU INTERESTED IN QUITTING?NOT READY TO QUIT COUNSELED THE PATIENT ON SMOKING EFFECTS, EDUCATION [id number]/19/2019 HOW MANY CIGARETTES A DAY DO YOU SMOKE?21-30 HOW SOON AFTER YOU WAKE UP DO YOU SMOKE YOUR FIRST CIGARETTE?WITHIN 5 MIN HOW OFTEN DO YOU SMOKE CIGARETTES?EVERY DAY PATIENT COUNSELED ON THE DANGERS OF TOBACCO USE AND URGED TO QUIT:04/19/2018 ALCOHOL SCREENING DID YOU HAVE A DRINK CONTAINING ALCOHOL IN THE PAST YEAR?YES HOW MANY DRINKS DID YOU HAVE ON A TYPICAL DAY WHEN YOU WERE DRINKING IN THE PAST YEAR?1 OR 2 (0 POINTS) HOW OFTEN DID YOU HAVE A DRINK CONTAINING ALCOHOL IN THE PAST YEAR?MONTHLY OR LESS (1 POINT) POINTS1 INTERPRETATIONNEGATIVE RECREATIONAL DRUG USE DRUG USE?YES MARIJUANA, ON A RARE OCCASSION. 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 DIET: REGULAR. EXERCISE: WALKS. MARITAL STATUS: , , . OTHERS AT HOME: SPOUSE, , OTHER RELATIVE. NEW PATIENT PAIN DIARY SPOUSE, , OTHER RELATIVE. PAIN CLINIC PFS, CLERGY, PUBLIC HEALTH REFERRALS PFS REFERRAL NEEDED?NO CLERGY REFERRAL NEEDED?NO PUBLIC HEALTH REFERRAL NEEDED?NO WAS THE PROVIDER NOTIFIED OF ANY PERTINENT INFO?YES HAS THE PATIENT BEEN EDUCATED REGARDING HIS/HER PLAN OF CARE?YES HAS THE PATIENT BEEN EDUCATED REGARDING PAIN, THE RISK FOR PAIN, THE IMPORTANCE OF EFFECTIVE PAIN MANAGEMENT, AND THE PAIN ASSESSMENT PROCESS?YES REVIEWED WITH PATIENT 12/13/17 1021 JS. HOSPITALIZATION/MAJOR DIAGNOSTIC PROCEDURE FELL, HAIRLINE FRACTURE SKULL AGE 8 GASTROENTERITIS AGE 18 REVIEW OF SYSTEMS REVIEWED BY: PROVIDER: BRE ATKINSON . CONSTITUTIONAL: ANY CHANGE IN YOUR MEDICAL CONDITION? NO . CHILLS NO . FEVER NO . INFECTION: DO YOU HAVE NEW INFECTIONS? YES, INCISIONAL INFECTION AROUND UMBILICUS S/P APPENDECTOMY PT TAKING CLINDAMYCIN FOR THIS, PT STATES IMPROVEMENT . DO YOU HAVE HISTORY OF MRSA? NO . MUSCULOSKELETAL: ANY NEW PATTERNS OF PAIN OR NUMBNESS? YES, HIGHER BACK PAIN AND MORE INTENSE, RF GAVE RELIEF X 2 WEEKS . GASTROENTEROLOGY: ANY NEW CHANGE IN BOWEL CONTROL? NO . GENITOURINARY: ANY NEW CHANGE IN BLADDER CONTROL? NO . IS THERE A CHANCE YOU COULD BE ? NO . HEMATOLOGY/LYMPH: DO YOU TAKE ANY BLOOD THINNERS? (FOR EXAMPLE- COUMADIN, PLAVIX, AGGRENOX, PLATEL, PRADAXA, OR XARELTO) NO . WHEN WAS YOUR LAST DOSE? DATE: TIME: . NEUROLOGY: HAVE YOU FALLEN IN THE PAST 12 MONTHS? YES, IN PAST 6 MOS FROM LEFT KNEE WEAKNESS, PT DENIES INJURIES NEEDING TX . ANY NEW EXTREMITY NUMBNESS OR WEAKNESS? NO . CARDIOLOGY: DO YOU HAVE A PACEMAKER OR DEFIBRILLATOR? NO . RESPIRATORY: HAVE YOU BEEN SICK IN THE PAST WEEK? NO . FEVER NO . FLU LIKE SYMPTOMS? NO . COUGH NO . INTEGUMENTARY: DO YOU HAVE ANY RASHES OR OPEN SORES? YES, UMBILICUS RASH S/P APPENDECTOMY . ALLERGIC/IMMUNO: ARE YOU ALLERGIC TO IV DYE? NO . ANY NEW ALLERGIES? NO . PSYCHIATRIC: DO YOU HAVE THOUGHTS OF HURTING YOURSELF OR SOMEONE ELSE? NO . ARE YOU ABUSED, NEGLECTED, OR IN AN UNSAFE ENVIRONMENT? NO . ENDOCRINOLOGY: ARE YOU DIABETIC? NO . OTHER: DO YOU NEED ANY PRESCRIPTIONS? NO . IF YES, PLEASE LIST: ____ . ANY NEW PROBLEMS WITH YOUR MEDICATIONS? NO . WHEN DID YOU LAST EAT? ____ . WHEN DID YOU LAST DRINK? ____ . WHAT DID YOU LAST DRINK? ____ . NAME OF PERSON DRIVING YOU HOME? ____ . DO YOU HAVE ANY OTHER QUESTIONS OR CONCERNS NO . VITAL SIGNS WT 360 LBS, HT 70 IN, BMI 51.65 INDEX, BP 164/109 MM HG, HR 67 /MIN, RR 16 /MIN, TEMP 97.7 F, OXYGEN SAT % 96, REVIEWED BY: EM. EXAMINATION GENERAL EXAMINATION: GENERAL APPEARANCE:ALERT,NO DISTRESS . PSYCHAFFECT NORMAL . LUNGS:LUNG SOUNDS ARE CLEAR . HEART:HEART RATE REGULAR . MUSCULOSKELETAL:MST 5/5 BILAT. LOWER EXTREMITIES . LUMBAR SACRAL SPINE TENDERNESS BILAT. SIJ . DIAGNOSTIC TESTS REVIEWEDMRI L/S [id number]. ASSESSMENTS SACROILIITIS - M46.1 (PRIMARY) TREATMENT SACROILIITIS START TRAMADOL HCL TABLET, 50 MG, 1-2 TAB, ORALLY, EVERY 4- 6 HRS MDD4, 30 DAY(S), 45, REFILLS 2 NOTES: BILAT. SIJ. PROCEDURE CODES FA211 ESTABILISHED PATIENT [facility] CHARGE DISPOSITION & COMMUNICATION FOLLOW UP POST (REASON: BILAT. SIJ) ELECTRONICALLY SIGNED BY DEMETRIO CHACKO ON 05/01/2018 AT 04:00 PM EST DISCLAIMER : THIS IS A VISIT SUMMARY EXTRACTED FROM THE [employer] CHART. IT IS NOT A COPY OF THE [facility] PROGRESS NOTE. RIMMA
== END ==
LOC: M PAIN 15:00
PROVIDERS: ATTEND Nurse Practitioner Family
DX: M46.1 Sacroiliitis, not elsewhere classified (principal); I10 Essential (primary) hypertension; G47.30 Sleep apnea, unspecified; F17.210 Nicotine dependence, cigarettes, uncomplicated; Z88.0 Allergy status to penicillin; Z88.6 Allergy status to analgesic agent; E66.01 Morbid (severe) obesity due to excess calories; Z68.43 Body mass index [BMI] 50.0-59.9, adult; Z79.899 Other long term (current) drug therapy

== ENCOUNTER → 2018-06-13 | Outpatient (CLI) | payer OTHER ==
[~2018-06-13] MED LIST changes: +DILT120C78 PO; -DILT120C82 PO; +DILT1CAP2 PO; -DILT1CAP48 PO; +HYDR-3715 PO; -NORCOTAB PO
--- NOTE | 2018-06-14 09:04 | REP ---
MR LUMBAR SPINE WITHOUT CONTRAST: HISTORY: Back pain. COMPARISON: 03/12/2017. There is no disc bulge or herniation at the L1-2 and L5-S1 levels. There is hypertrophy of the posterior articulating facets at the L5-S1 level. The nerves exit the neural foramina without compression. A diffuse disc bulge is present at the L2-3 level. There is minimal compression of the thecal sac. There is hypertrophy of the posterior articulating facets. The L2 nerves exit the neural foramina without compression. A diffuse disc bulge is present at the L3-4 level. There is minimal compression of the thecal sac. There is hypertrophy of the posterior articulating facets. The L3 nerves exit the neural foramina without compression. A diffuse disc bulge is present at the L4-5 level. There is minimal compression of the thecal sac. There is hypertrophy of the posterior articulating facets. The L4 nerves exit the neural foramina without compression. The conus medullaris is normal in appearance terminating at the level of the L1-2 intervertebral disc. Normal signal intensity is present in the lumbar intervertebral discs and vertebral bodies. IMPRESSION: Diffuse disc bulges at the L2-3 through L4-5 levels with minimal thecal sac compression. There is no significant change compared to the previous study. Electronically Signed by Pato Ramirez MD 06/14/2018 09:14 A
== END ==
LOC: M RAD 16:54
DX: M54.5 Low back pain (principal)

== ENCOUNTER → 2018-11-27 | Outpatient (CLI) | payer OTHER ==
--- NOTE | 2018-11-29 22:36 | SLEEPCENT ---
DATE OF PROCEDURE: 11/27/2018 ORDERED BY: DEMETRIO Moncada Nocturnal polysomnography was performed for evaluation of sleep physiology in this patient with a history of excessive somnolence and nonrestorative sleep who has a history of atrial fibrillation and cardiac dysrhythmia. 7 hours and 48 minutes of data were reviewed. There were 434 minutes of sleep identified. Sleep latency was normal at 9 minutes. Rapid eye movement (REM) latency was mildly delayed at 118 minutes. Sleep architecture showed fragmentation. There were four REM cycles noted. Overall sleep efficiency was 93.6%. REM time was diminished. The patient's electrocardiogram showed a sinus rhythm with an average heart rate of 60 beats per minute. Rate ranged 40-80 beats per minute. EEG showed fairly normal waveforms for awake and sleep. There were 580 respiratory events identified of 10 seconds in duration or greater for an apnea-hypopnea index of 80.2. The events were primarily obstructive, though 63 central and mixed apneas were seen. The events were not exclusive to sleep stage nor body posture. Arousals from respiratory events occurred 53.8 times per hour and oxygen desaturations were seen to 72%. There was some activity in the limb leads, but arousals from limb events were insignificant. Snoring was noted over the entire course of the study. IMPRESSION: Severe obstructive sleep apnea syndrome (G47.33). Apnea-hypopnea index 80.2. RECOMMENDATIONS: Given the profound oxygen desaturations seen and the frequency of respiratory events, the patient should be strongly encouraged to return to the sleep disorder center for pressure therapy. In the interim alcohol and sedative avoidance should be practiced and caution exercised during operation of motor vehicles.
== END ==
LOC: M SLEEP 20:00
PROVIDERS: ATTEND Nurse Practitioner Family
DX: G47.33 Obstructive sleep apnea (adult) (pediatric) (principal)

== ENCOUNTER → 2019-07-11 | Outpatient (REF) | payer OTHER ==
[~2019-07-11] MED LIST changes: +CARV25TA PO; +GABA-282 PO; -GABA-843 PO; +HM S0.65 NARES; +HYDR-3490 PO; -LISI-538 PO; +LISI20TA33 PO; -LISI40TA PO; +LISI40TA4 PO; +PERC5TAB12 PO; +VITA200048 PO
[2019-07-12 14:04] LABS: APPEARANCE, URINE CLEAR (CLEAR); BACTERIA, URINE AUTO NEGATIVE (NEGATIVE); BILIRUBIN, URINE AUTO NEGATIVE (NEGATIVE); BLOOD, URINE BLOOD NEGATIVE (NEGATIVE); COLOR, URINE YELLOW (YELLOW); GLUCOSE, URINE (UA) AUTO NEGATIVE (NEGATIVE); KETONE, URINE AUTO NEGATIVE (NEGATIVE); LEUKOCYTE ESTERASE, URINE AUTO NEGATIVE (NEGATIVE); MUCUS, URINE SMALL (NEGATIVE); NITRITE, URINE AUTO NEGATIVE (NEGATIVE); PROTEIN, URINE AUTO NEGATIVE (NEGATIVE); RBC, URINE AUTO 0 /HPF (0-3); SPECIFIC GRAVITY URINE AUTO 1.021 (1.002-1.035); SQUAMOUS EPITHELIAL CELL UR AU 0 /HPF (0-6); UROBILINOGEN, URINE AUTO 0.2 mg/dL (0.0-2.0); WBC, URINE AUTO 2 /HPF (0-3)
== END ==
LOC: M SMT 12:47
PROVIDERS: ATTEND Nurse Practitioner Family
DX: N43.3 Hydrocele, unspecified (principal)
CPT/HCPCS: 51798; 81001; 87086; G0463

== ENCOUNTER → 2019-07-27 | Outpatient (CLI) | payer OTHER ==
[~2019-07-27] MED LIST changes: -CARV25TA PO; -GABA-282 PO; +GABA-843 PO; -HM S0.65 NARES; -HYDR-3490 PO; +LISI-538 PO; -LISI20TA33 PO; +LISI40TA PO; -LISI40TA4 PO; -PERC5TAB12 PO; -VITA200048 PO
--- NOTE | 2019-07-27 20:37 | REP ---
Clinical: Scrotal swelling. Technique: Real time cabrera scale and color Doppler evaluation using linear high frequency transducer. Findings: The bilateral testicles are normal in contour, size, echogenicity, and vascularity. No testicular torsion, infectious/inflammatory process, or testicular mass lesion identified. No hydrocele. No varicocele. Multiple right epididymal head/body cysts are identified measuring up to 10 mm and 11 mm maximal. Multiple complex left and minimal head cysts correspond to palpable mass and measure up to 3.9 cm and 4.2 cm maximal diameter. Impression: 1. Bilateral simple and complex epididymal cysts (left greater than right) as described above are nonspecific. 2. Normal appearance the bilateral testicles. Electronically Signed by Augustus Johnson MD 07/27/2019 08:28 P
== END ==
LOC: M RAD 12:00
PROVIDERS: ATTEND Nurse Practitioner Family
DX: N50.89 Other specified disorders of the male genital organs (principal); N50.3 Cyst of epididymis

== ENCOUNTER 2019-10-06 06:46 | Day surgery (SDC) | payer OTHER ==
[2019-10-06] MEDS ORDERED: BACITRACIN OINTMENT 30GM TUBE As Ordered ONE (07:11)
[2019-10-06] MEDS ORDERED: LIDOCAINE 2% 100MG/5ML SDV (FOR ANES.) As Ordered ONE (07:17)
[2019-10-06] MEDS ORDERED: propofoL 200 MG/20 ML VIAL As Ordered ONE ×2 (07:17→07:40)
[2019-10-06] MEDS ORDERED: MIDAZOLAM INJ 2MG/2ML VIAL (J2250 PER 1MG) As Ordered ONE (07:17)
[2019-10-06] MEDS ORDERED: GENTAMICIN/SOD CHL 80 MG/100 ML BAG (J1580) As Ordered ONE (07:17)
[2019-10-06] MEDS ORDERED: ONDANSETRON 4MG/2ML VIAL As Ordered ONE (07:17)
[2019-10-06] MEDS ORDERED: VANCOMYCIN 1000MG/20ML VIAL As Ordered ONE (07:17)
[2019-10-06] MEDS ORDERED: KETOROLAC 60MG 2ML VIAL As Ordered ONE (07:17)
[2019-10-06] MEDS ORDERED: dexameTHASONE 4 MG/ML 1ML VIAL (J1100 PER 1MG) As Ordered ONE ×2 (07:17→08:01)
[2019-10-06] MEDS ORDERED: fentaNYL 100 MCG/2 ML INJECTION (J3010) As Ordered ONE (07:18)
[2019-10-06] MEDS ORDERED: ROCURONIUM BROMIDE 50 MG/5 ML VIAL As Ordered ONE ×2 (07:41→08:17)
[2019-10-06] MEDS ORDERED: ePHEDrine SULFATE 25 MG/5 ML(5MG/ML) SYRINGE As Ordered ONE ×2 (07:57→09:10)
[2019-10-06] MEDS ORDERED: BUPIVACAINE HCL 0.25% 30ML VIAL As Ordered ONE (07:59)
[2019-10-06] MEDS ORDERED: LIDOCAINE 1% SDV 30ML VIAL As Ordered ONE (07:59)
[2019-10-06] MEDS ORDERED: ACETAMINOPHEN 1000MG 100ML IV BTL (OFIRMEV) (J0131 PER 10MG) As Ordered ONE (08:32)
[2019-10-06] MEDS ORDERED: SUGAMMADEX SODIUM 500 MG/5 ML VIAL (BRIDION) As Ordered ONE (08:32)
--- NOTE | 2019-12-07 09:56 | RO ---
DATE OF OPERATION: 10/06/2019 PREOPERATIVE DIAGNOSES: Left epididymal cyst, sterilization. POSTOPERATIVE DIAGNOSES: Left epididymal cyst, sterilization. PROCEDURES: Removal of left epididymal cyst, left scrotal exploration, bilateral vasectomy. SURGEON: Shoaib Mitchell MD STUDENT LIFE COORDINATOR: None ANESTHESIA: General. OPERATIVE INDICATIONS: This is a 44-year-old male who has had an uncomfortable large left epididymal cyst. He also desired sterilization. He is brought to the operating room today for treatment. DESCRIPTION OF PROCEDURE: The patient was brought to the operating room and general anesthesia was induced. Prophylactic antibiotics were infused. He was placed in supine position, prepped and draped in the usual sterile fashion. At this point, an approximately 3-4 cm transverse incision was made at over the left hemiscrotum. We then dissected down through the left scrotal wall layers. The testicle was then delivered outside the left hemiscrotum. The tunica vaginalis was opened. At this point, the patient was noted to have two moderate- sized cysts with the largest measuring around 4 cm in size. Both of the cysts were carefully dissected out using a combination of Bovie and scissors. The wall of each cyst was then handed off to be sent for pathologic analysis. Once that was done, we checked for hemostasis and hemostasis was obtained using the Bovie. Once we were done with that part of the procedure, the left vas deferens was identified and skeletonized. A segment of left vas deferens then had metal clips place on both the proximal and distal ends. This segment of vas deferens in between was then transected and sent off for pathologic analysis. I then also cauterized both the proximal and distal ends of the vas deferens. Once this was done, we once again checked for hemostasis and once satisfied with hemostasis, the testicle was delivered back inside the left hemiscrotum in its normal anatomic position. The dartos muscle was then closed with a running 3-0 Vicryl suture. The skin was then closed with interrupted 2-0 Chromic sutures. Local anesthesia was then applied. Once that was done, we moved over to the right side to complete the bilateral vasectomy. The vas deferens was then identified in the right hemiscrotum and the local anesthetic was applied to the skin. A small stab incision was made overlying the right vas deferens and then a vas deferens clamp was placed around it. The right vas deferens was then skeletonized. Lateral clips were then placed on both the proximal and distal ends from a small segment of the vas deferens. A segment of vas deferens in between the clips was then transected and sent off for pathologic analysis. Both proximal and distal ends were then cauterized and once that was done we checked for hemostasis. Once satisfied with hemostasis, the skin was closed with Dermabond. Dressings were then applied to the incision in the left hemiscrotum and this marked the conclusion of the procedure. The patient was then awakened from anesthesia and transported to the recovery room in stable condition. ESTIMATED BLOOD LOSS: 5 mL COMPLICATIONS: None. SPECIMENS: Left epididymal cyst kan, segments of right and left vasa deferentia. PLAN: The patient will follow up in clinic in approximately two weeks for a postoperative visit. He will need to have a post-vasectomy semen analysis done in approximately 8 weeks. RIMMA
== END 2019-10-06 11:30 | disposition home or self-care (01) ==
LOC: M SDC 06:46
PROVIDERS: ATTEND Urology
DX: N50.3 Cyst of epididymis (principal); Z30.2 Encounter for sterilization; I48.91 Unspecified atrial fibrillation; I10 Essential (primary) hypertension; G47.30 Sleep apnea, unspecified; F32.9 Major depressive disorder, single episode, unspecified; F41.9 Anxiety disorder, unspecified; Z91.018 Allergy to other foods; Z88.0 Allergy status to penicillin; F17.218 Nicotine dependence, cigarettes, with other nicotine-induced disorders; Z79.82 Long term (current) use of aspirin; Z79.899 Other long term (current) drug therapy; G25.81 Restless legs syndrome
CPT/HCPCS: 54830; 55250; 88302; 88304; J0131; J1100; J1580; J2250; J2405; J3010; J3370

== ENCOUNTER → 2020-02-21 | Outpatient (CLI) | payer OTHER ==
--- NOTE | 2020-02-21 18:34 | REPVR ---
PROCEDURE INFORMATION: Exam: MR Lumbar Spine Without Contrast. Exam date and time: 02/21/2020 4:41 PM Age: 44 years old Clinical indication: Low back pain; Patient HX: Lbp planning for scs TECHNIQUE: Imaging protocol: Multiplanar magnetic resonance images of the lumbar spine without intravenous contrast. COMPARISON: MRI-Spine, L.S. without con 06/13/2018 5:11 PM FINDINGS: Vertebrae: No acute compression fracture is seen. Bone marrow signal is within normal limits. Spinal cord: The conus medullaris terminates at the L1 level. There is no evidence of arachnoiditis or cauda equina compression. L1-L2: No significant disc disease. No significant spinal stenosis or neural foraminal narrowing. L2-L3: There is mild facet arthropathy. There is no significant spinal canal or neural foraminal stenosis. L3-L4: There is moderate facet arthropathy. This is causing mild left and minimal right neural foraminal narrowing. There is no spinal canal stenosis. L4-L5: There is severe facet arthropathy. This is causing mild bilateral neural foraminal narrowing. There is no spinal canal stenosis. L5-S1: There is moderate facet arthropathy. There is no significant spinal canal or neural foraminal stenosis. Soft tissues: Subcutaneous edema is present in the lower back. IMPRESSION: Stable facet arthropathy within the lumbar spine Electronically signed by: Pillo Caballero On 02/21/2020 18:34:44 PM
== END ==
LOC: M RAD 15:39
PROVIDERS: ATTEND Physician Assistant Medical
DX: M54.5 Low back pain (principal)

== ENCOUNTER → 2020-03-02 | Outpatient (CLI) | payer OTHER ==
[~2020-03-02] MED LIST changes: +CARV25TA PO; +HYDR25TAB PO; +VITA200048 PO
== END ==
LOC: M LABSMTC 08:42
PROVIDERS: ATTEND Anesthesiology
DX: Z01.812 Encounter for preprocedural laboratory examination (principal); Z20.828 Contact with and (suspected) exposure to other viral communicable diseases

== ENCOUNTER 2020-03-07 10:55 | Observation (INO) | payer OTHER ==
[~2020-03-07] VITALS: Ht 177.8 cm; Wt 171.4 kg
[~2020-03-07 10:55] MED LIST changes: +LIDOCAINE 2% 100MG/5ML SDV (FOR ANES.) As Ordered ONE; +LR 1,000 ML IV ONE; +MIDAZOLAM INJ 2MG/2ML VIAL (J2250 PER 1MG) As Ordered ONE; +ROCURONIUM BROMIDE 50 MG/5 ML VIAL As Ordered ONE; +fentaNYL 100 MCG/2 ML INJECTION (J3010) As Ordered ONE; +propofoL 200 MG/20 ML VIAL As Ordered ONE
[2020-03-07] MEDS ORDERED: OXYMETAZOLINE 0.05% NASAL SPRAY (AFRIN) As Ordered ONE ×2 (11:10→11:39)
[2020-03-07] MEDS ORDERED: LIDOCAINE W/EPINEPHRINE 1% 20ML VIAL As Ordered ONE (11:11)
[2020-03-07] MEDS ORDERED: METHYLENE BLUE 0.5% (5MG/ML) 10 ML AMP (PROVAYBLUE) As Ordered ONE (11:11)
[2020-03-07] MEDS ORDERED: BUPIVACAINE HCL 0.5% 10ML VIAL As Ordered ONE (11:11)
[2020-03-07] MEDS ORDERED: BUPIVACAINE/EPIN 0.5% 30 ML VIAL As Ordered ONE (11:40)
[2020-03-07] MEDS ORDERED: ONDANSETRON 4MG/2ML VIAL As Ordered ONE ×2 (14:06→15:56)
[2020-03-07] MEDS ORDERED: KETOROLAC 60MG 2ML VIAL As Ordered ONE (14:06)
[2020-03-07] MEDS ORDERED: fentaNYL 250 MCG/5 ML INJECTION (J3010) As Ordered ONE (14:06)
[2020-03-07] MEDS ORDERED: ACETAMINOPHEN 1000MG 100ML IV BTL (OFIRMEV) (J0131 PER 10MG) As Ordered ONE (14:06)
[2020-03-07] MEDS ORDERED: dexameTHASONE 4 MG/ML 1ML VIAL (J1100 PER 1MG) As Ordered ONE (14:07)
[2020-03-07] MEDS ORDERED: SUGAMMADEX SODIUM 500 MG/5 ML VIAL (BRIDION) As Ordered ONE (14:32)
[2020-03-07] MEDS ORDERED: oxyCODONE 5MG TAB As Ordered ONE (15:57)
[2020-03-07] MEDS: oxyCODONE 5MG TAB PO PRN ×2 (16:02→16:35)
[2020-03-07] MEDS ORDERED: LR 1,000 ML IV SCH (16:15)
[2020-03-07] MEDS ORDERED: ONDANSETRON 4MG/2ML VIAL IV PRN (16:15)
[2020-03-07] MEDS ORDERED: fentaNYL 100 MCG/2 ML INJECTION (J3010) IV PRN (16:15)
[2020-03-07 16:28] LABS: HEMATOCRIT 44.9 % (42.0-52.0); HEMOGLOBIN 14.7 g/dl (13.5-17.5); MEAN CORPUSCULAR HEMOGLOBIN 30.7 pg (27.0-33.0); MEAN CORPUSCULAR HGB CONC 32.7 g/dl (32.0-36.5); MEAN CORPUSCULAR VOLUME 93.7 fl (80.0-96.0); PLATELET COUNT, AUTOMATED 172 10^3/uL (150-450); RED BLOOD COUNT 4.79 10^6/uL (4.30-6.10); WHITE BLOOD COUNT 11.5 10^3/uL (4.0-10.0)
[2020-03-07] MEDS ORDERED: IBUPROFEN 800 MG TAB PO PRN (16:30)
[2020-03-07 17:03] LABS: BLOOD UREA NITROGEN 20 MG/DL (7-18); CALCIUM LEVEL 8.4 MG/DL (8.5-10.1); CARBON DIOXIDE LEVEL 31 MEQ/L (21-32); CHLORIDE LEVEL 105 MEQ/L (98-107); CREATININE FOR GFR 1.13 MG/DL (0.70-1.30); GLOMERULAR FILTRATION RATE > 60.0 (>60); GLUCOSE, FASTING 126 MG/DL (70-100); SODIUM LEVEL 139 MEQ/L (136-145)
--- NOTE | 2020-03-07 19:42 | HPEPDOC ---
[facility] Medical History & Physical Date of Admission Mar 07, 2020 Date of Service: Mar 07, 2020 History and Physical CHIEF COMPLAINT:deviated septum s/p septoplasty HISTORY OF PRESENT ILLNESS: 44 y/o morbidly obese male bmi 54, smoker, with htn fidelina GERD chronic back pain had septoplasty 03/07/20 for a deviated septum by Dr. Patel, ENT, admitted to hospitalist service for observation with FIDELINA protocol. He requests nicotine patch due to nicotine craving, and denies any other complaints. Due to anesthesia, morbid obesity, and FIDELINA, pt is at high risk of respiratory acidosis, and will be monitored overnight. If no issues, may be discharged in the morning. PAST MEDICAL HISTORY: morbidly obese male bmi 54, smoker, with htn fidelina GERD chronic back pain deviated septum PAST SURGICAL HISTORY: septoplasty 03/07/20, colonoscopy, appy , left foot surgery , b/l carpal tunnel release SOCIAL HISTORY: on disability, occ marijuana, fire truck driver, 1ppd smoker, refuses to quit FAMILY HISTORY: Father: unknown ALLERGIES: Please see below. REVIEW OF SYSTEMS: 12point ros negative aside from +findings on HPI HOME MEDICATIONS: Please see below. PHYSICAL EXAMINATION: VITAL SIGNS: see below GENERAL APPEARANCE: mild distress, mouth breathing due to nasal packing b/l nares no pallor or cyanosis. HEENT: thick neck, no stridor or jvd dry mm mouth breathing CARDIOVASCULAR: S1 S2 rrr LUNGS: CTAB AEBE ABDOMEN: obese soft nt nd EXTREMITIES: -edema b/l LABORATORY DATA: See below. ASSESSMENT: 44 y/o morbidly obese male bmi 54, smoker, with htn fidelina GERD chronic back pain had septoplasty 03/07/20 for a deviated septum by Dr. Patel, ENT, admitted to hospitalist service for observation with FIDELINA protocol. He requests nicotine patch due to nicotine craving, and denies any other complaints. Due to anesthesia, morbid obesity, and FIDELINA, pt is at high risk of respiratory acidosis, and will be monitored overnight. If no issues, may be discharged in the morning. Deviated septum s/p 03/07/20 septoplasty -clay and postop mgt per ENT including pain control, dvt prophylaxis, abx, wound care FIDELINA -fiedlina protocol Active Tobacco abuse -cessation counselling -nicotine patch HTN -resumed leland emeds -uncontrolled due to pain Morbid obesity bmi 54.2 -low fat low chol diet -outpt bariatric surgery referral -diet and weight loss as outpt -complicating care disposition: dc home in am. Vital Signs Vital Signs Date Time Temp Pulse Resp B/P (MAP) Pulse Ox O2 Delivery O2 Flow Rate FiO2 03/07/20 19:24 75 20 141/82 (101) 93 Nasal Cannula 3 03/07/20 18:32 97.2 Laboratory Data Labs 24H Laboratory Tests 2 03/07/20 16:18: Nucleated Red Blood Cells % (auto) 0.0, Anion Gap 3L, Glomerular Filtration Rate > 60.0, Calcium Level 8.4L CBC/BMP Laboratory Tests 03/07/20 16:18 Home Medications Scheduled Carvedilol (Carvedilol) 25 Mg Tablet, 25 MG PO BID Diltiazem HCl (Diltiazem 24Hr ER) 120 Mg Cap, 120 MG PO DAILY Gabapentin (Gabapentin) 300 Mg Cap, 300 MG PO DAILY Hydrochlorothiazide (Hydrochlorothiazide) 25 Mg Tablet, 25 MG PO DAILY Lisinopril (Lisinopril) 40 Mg Tab, 40 MG PO QHS Sertraline Hcl (Zoloft) 100 Mg Tab, 150 MG PO DAILY Scheduled PRN Hydroxyzine HCl (Hydroxyzine HCl) 10 Mg Tab, 10 MG PO DAILYPRN PRN for ANXIETY Ibuprofen (Ibuprofen) 800 Mg Tab, 800 MG PO Q8H PRN for PAIN Miscellaneous Medications Ergocalciferol (Vitamin D2) (Vitamin D2) 50 Mcg Capsule, 2,000 UNIT PO Allergies Coded Allergies: Penicillins (Verified Allergy, Severe, eyes swelled, 03/07/20) Common Ragweed (Unverified Allergy, Unknown, 03/07/20) aspirin (Verified Adverse Reaction, Intermediate, bloody noses, 03/07/20) POPCORN (Verified Adverse Reaction, Mild, N/V, 03/07/20) A-FIB/CHADSVASC A-FIB History Current/History of A-Fib/PAF?: No Current PO Anticoag Therapy: No Age/Risk Factor Scoring CHADSVASC: CHADSVASC Response (Comments) Value Age Risk Factor Age < 65 years old 0 Gender Risk Factor Male 0 Hx of CHF No 0 Hx of HTN Yes 1 Hx of Stroke/TIA/or VTE No 0 Hx of Diabetes No 0 Hx of Vascular Disease No 0 Total 1 Treatment Treatment ordered: NONE DILLON WHITFIELD MD Mar 07, 2020 19:42
[2020-03-07] MEDS ORDERED: NICOTINE 14 MG/24 HR TRANSDERMAL TD ONE (19:45)
[2020-03-07] MEDS ORDERED: lisinopriL 40 MG TAB PO SCH (21:00)
[2020-03-07] MEDS: CARVedilol 12.5 MG TAB PO SCH (22:15)
[2020-03-07] MEDS: HYDROcodone/APAP LIQUID 7.5-325MG 15ML UDC (LORTAB ELIXIR) PO PRN (22:15)
[2020-03-08 02:35] VITALS: BP 141/83
[2020-03-08] MEDS: HYDROcodone/APAP LIQUID 7.5-325MG 15ML UDC (LORTAB ELIXIR) PO PRN ×2 (02:35→08:11)
[2020-03-08 04:00] VITALS: BP 147/90
[2020-03-08 06:00] VITALS: BP_SYST 149; BP_SYST 150; BP_DIAS 64; BP_DIAS 90
[2020-03-08 08:00] VITALS: BP 152/87
[2020-03-08] MEDS: CARVedilol 12.5 MG TAB PO SCH (08:09)
[2020-03-08 08:10] VITALS: BP 152/87
[2020-03-08] MEDS ORDERED: HM S0.65 NARES (08:20)
[2020-03-08] MEDS ORDERED: PERC5TAB12 PO (08:20)
[2020-03-08] MEDS ORDERED: SODIUM CHLORIDE NASAL 0.65% SPRAY BTL (OCEAN) PRN (08:30)
[2020-03-08] MEDS ORDERED: PERCOCET 5MG/325MG TAB PO PRN (08:30)
[2020-03-08] MEDS ORDERED: SERTRALINE HCL 50 MG TAB PO SCH (09:00)
--- NOTE | 2020-03-08 11:29 | DS.PDOC ---
Discharge Summary General Date of Admission 03/07/20 Date of Discharge 03/08/20 Discharge Summary Discharge diagnoses: Deviated septum status post septoplasty FIDELINA Morbid obesity, BMI 54.2 Hypertension Gastroesophageal reflux Chronic back pain Discharge medications see below Discharge instructions per ENT HOSPITAL COURSE : 44 y/o morbidly obese male bmi 54, smoker, with htn fidelina GERD chronic back pain had septoplasty 03/07/20 for a deviated septum by Dr. Patel, ENT, admitted to hospitalist service for observation with FIDELINA protocol. He requests nicotine patch due to nicotine craving, and denies any other complaints. Due to anesthesia, morbid obesity, and FIDELINA, pt is at high risk of respiratory acidosis, and will be monitored overnight. If no issues, may be discharged in the morning. Deviated septum s/p 03/07/20 septoplasty -clay and postop mgt per ENT including pain control, dvt prophylaxis, abx, wound care FIDELINA -fidelina protocol Active Tobacco abuse -cessation counselling -nicotine patch HTN -resumed leland emeds -uncontrolled due to pain Morbid obesity bmi 54.2 -low fat low chol diet -outpt bariatric surgery referral -diet and weight loss as outpt -complicating care PHYSICAL EXAMINATION: VITAL SIGNS: see below GENERAL APPEARANCE: Dry clots b/l nares no pallor or cyanosis. . No use of respiratory accessory muscles. Able to speak in full set distances HEENT: thick neck, no stridor or jvd dry mm mouth breathing CARDIOVASCULAR: S1 S2 rrr LUNGS: CTAB AEBE ABDOMEN: obese soft nt nd EXTREMITIES: -edema b/l LABORATORY DATA: See below. Time spent on discharge 30 minutes Vital Signs/I&Os Vital Signs Date Time Temp Pulse Resp B/P (MAP) Pulse Ox O2 Delivery O2 Flow Rate FiO2 03/08/20 10:07 18 03/08/20 09:04 2.0 03/08/20 08:11 96 Room Air 03/08/20 08:10 76 152/87 03/08/20 08:00 98.3 I&O- Last 24 Hours up to 6 AM 03/08/20 06:00 Intake Total 1725 ml Output Total 870 ml Balance 855 ml Laboratory Data Labs 24H Laboratory Tests 2 03/07/20 16:18: Nucleated Red Blood Cells % (auto) 0.0, Anion Gap 3L, Glomerular Filtration Rate > 60.0, Calcium Level 8.4L CBC/BMP Laboratory Tests 03/07/20 16:18 Discharge Medications Scheduled Carvedilol (Carvedilol) 25 Mg Tablet, 25 MG PO BID, (Reported) Diltiazem HCl (Diltiazem 24Hr ER) 120 Mg Cap, 120 MG PO DAILY, (Reported) Gabapentin (Gabapentin) 300 Mg Cap, 300 MG PO DAILY, (Reported) Hydrochlorothiazide (Hydrochlorothiazide) 25 Mg Tablet, 25 MG PO DAILY, (Reported) Lisinopril (Lisinopril) 40 Mg Tab, 40 MG PO QHS, (Reported) Sertraline Hcl (Zoloft) 100 Mg Tab, 150 MG PO DAILY, (Reported) Sodium Chloride (Saline Nasal [place]) 44 Ml [place], 1-2 SPRAY NARES Q2H for nasal dryness Scheduled PRN Hydroxyzine HCl (Hydroxyzine HCl) 10 Mg Tab, 10 MG PO DAILYPRN PRN for ANXIETY, (Reported) Ibuprofen (Ibuprofen) 800 Mg Tab, 800 MG PO Q8H PRN for PAIN, (Reported) Oxycodone HCl/Acetaminophen (Percocet 5-325 mg Tablet) 1 Each Tablet, 1 TAB PO Q6HP PRN for pain Miscellaneous Medications Ergocalciferol (Vitamin D2) (Vitamin D2) 50 Mcg Capsule, 2,000 UNIT PO, (Reported) Allergies Coded Allergies: Penicillins (Verified Allergy, Severe, eyes swelled, 03/07/20) Common Ragweed (Unverified Allergy, Unknown, 03/07/20) aspirin (Verified Adverse Reaction, Intermediate, bloody noses, 03/07/20) POPCORN (Verified Adverse Reaction, Mild, N/V, 03/07/20) DILLON WHITFIELD MD Mar 08, 2020 11:29
[2020-03-08 14:00] VITALS: BP 149/73
--- NOTE | 2020-03-09 11:10 | ECGEPIP ---
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
== END 2020-03-08 15:40 | disposition home or self-care (01) ==
LOC: M SDC 10:55 → M MSPAV 10:56 → M SDC 03-08 02:36 → M MSPAV 03-08 15:40 → M SDC 03-08 15:40
PROVIDERS: ADMIT General Practice; ATTEND General Practice
DX: J34.2 Deviated nasal septum (principal); G47.33 Obstructive sleep apnea (adult) (pediatric); I10 Essential (primary) hypertension; K21.9 Gastro-esophageal reflux disease without esophagitis; E66.01 Morbid (severe) obesity due to excess calories; F17.218 Nicotine dependence, cigarettes, with other nicotine-induced disorders; F12.10 Cannabis abuse, uncomplicated; Z79.899 Other long term (current) drug therapy; G89.29 Other chronic pain; Z88.0 Allergy status to penicillin; Z88.8 Allergy status to other drugs, medicaments and biological substances
CPT/HCPCS: 30520; 36415; 42145; 80048; 85027; 88300; 88302; 93005; G0378; J0131; J1100; J1885; J2250; J2405; J3010; Q9968

== ENCOUNTER → 2020-04-29 | Outpatient (CLI) | payer OTHER ==
[~2020-04-29] MED LIST changes: +GABA-282 PO; -GABA-843 PO; +HM S0.65 NARES; +HYDR-3490 PO; -HYDR25TAB PO; -LIDOCAINE 2% 100MG/5ML SDV (FOR ANES.) As Ordered ONE; -LISI-538 PO; +LISI20TA33 PO; -LISI40TA PO; +LISI40TA4 PO; -LR 1,000 ML IV ONE; -MIDAZOLAM INJ 2MG/2ML VIAL (J2250 PER 1MG) As Ordered ONE; +PERC5TAB12 PO; -ROCURONIUM BROMIDE 50 MG/5 ML VIAL As Ordered ONE; -fentaNYL 100 MCG/2 ML INJECTION (J3010) As Ordered ONE; -propofoL 200 MG/20 ML VIAL As Ordered ONE
--- NOTE | 2020-04-29 21:42 | REPVR ---
PROCEDURE INFORMATION: Exam: MR Thoracic Spine Without Contrast Exam date and time: 04/29/2020 3:03 PM Age: 45 years old Clinical indication: Other: Hugh low back pain TECHNIQUE: Imaging protocol: Multiplanar magnetic resonance images of the thoracic spine without contrast. COMPARISON: No relevant prior studies available. FINDINGS: Vertebrae: Unremarkable. Spinal cord: Small syrinx measuring 1.2 mm extends from the T4-5 level inferiorly to the T6-7 level. Discs/Spinal canal/Neural foramina: Posterior disc protrusion at T8-9 effaces the ventral subarachnoid space with mild mid and right manisha cord impingement. The spine demonstrates mild degenerative changes. Mild annular bulge at T7-8 without neural compromise. Soft tissues: Unremarkable. IMPRESSION: 1. Discs: Posterior disc protrusion at T8-9 effaces the ventral subarachnoid space with mild mid and right manisha cord impingement. 2. Small syrinx measuring 1.2 mm extends from the T4-5 level inferiorly to the T6-7 level. Electronically signed by: Guero Galvan On 04/29/2020 21:42:31 PM
== END ==
LOC: M RAD 12:41
PROVIDERS: ATTEND Neurological Surgery
DX: M54.42 Lumbago with sciatica, left side (principal); M54.41 Lumbago with sciatica, right side; G89.29 Other chronic pain

== ENCOUNTER → 2020-12-02 | Outpatient (CLI) | payer OTHER ==
--- NOTE | 2020-12-02 13:17 | REP ---
INDICATION: SCREENING COMPARISON: None. TECHNIQUE: Axial noncontrast images from the thoracic inlet to the upper abdomen using low-dose lung screening technique (LDCT). This CT examination was performed using the following dose reduction techniques: Automated exposure control, adjustment of mA and/or kv according to the patient's size, and use of iterative reconstruction technique. FINDINGS: Lung savage are well aerated and essentially clear. No acute consolidation, suspicious nodule or mass. Few small nonspecific densities up to 3 mm noted. Tracheobronchial tree is patent. No effusion. No pneumothorax. IMPRESSION: Lung-RADS category 2. Management recommendations include annual low-dose CT surveillance. <Electronically signed by Augustus Johnson > 12/02/20 [id number]
== END ==
LOC: M RAD 12:51
PROVIDERS: ATTEND Nurse Practitioner Primary Care
DX: Z12.2 Encounter for screening for malignant neoplasm of respiratory organs (principal); F17.200 Nicotine dependence, unspecified, uncomplicated; R91.8 Other nonspecific abnormal finding of lung field

== ENCOUNTER → 2021-08-15 | Outpatient (CLI) | payer OTHER | LOC: M SLEEP 08-16 20:00 | PROVIDERS: ATTEND Nurse Practitioner Family | DX: G47.33 Obstructive sleep apnea (adult) (pediatric) (principal) ==

== ENCOUNTER → 2022-03-09 | Outpatient (CLI) | payer OTHER ==
[~2022-03-09] MED LIST changes: +GASTROGRAFIN SOLUTION 30ML As Ordered ONE; +ISOVUE-370 76% 100ML VIAL As Ordered ONE
== END ==
LOC: M RAD 14:40
PROVIDERS: ATTEND Surgery
DX: K43.2 Incisional hernia without obstruction or gangrene (principal); K76.89 Other specified diseases of liver; K46.9 Unspecified abdominal hernia without obstruction or gangrene
CPT/HCPCS: 74177; Q9963; Q9967

== ENCOUNTER → 2022-03-09 | Outpatient (CLI) | payer OTHER ==
[~2022-03-09] MED LIST changes: -GASTROGRAFIN SOLUTION 30ML As Ordered ONE; -ISOVUE-370 76% 100ML VIAL As Ordered ONE
== END ==
LOC: M RAD 14:37
PROVIDERS: ATTEND Nurse Practitioner Family
DX: R91.1 Solitary pulmonary nodule (principal); Z53.9 Procedure and treatment not carried out, unspecified reason

== ENCOUNTER 2022-05-13 11:21 | Emergency (ER) | payer OTHER ==
[~2022-05-13] VITALS: Ht 177.8 cm; Wt 166.6 kg
[~2022-05-13 11:21] MED LIST changes: -CYCL-707 PO; -IBUP-1022 PO
[2022-05-13] MEDS ORDERED: CYCL-707 PO (14:07)
[2022-05-13] MEDS ORDERED: IBUP-1022 PO (14:07)
[2022-05-13 14:14] VITALS: BP 159/85
== END 2022-05-13 14:15 | disposition home or self-care (01) ==
LOC: M ED 11:21
DX: M54.50 Low back pain, unspecified (principal); I10 Essential (primary) hypertension; Z90.89 Acquired absence of other organs; F17.200 Nicotine dependence, unspecified, uncomplicated; Z88.0 Allergy status to penicillin; Z88.6 Allergy status to analgesic agent; Z91.018 Allergy to other foods; Z79.899 Other long term (current) drug therapy

== ENCOUNTER → 2022-05-13 | Outpatient (CLI) | payer OTHER ==
[~2022-05-13] MED LIST changes: +CYCL-707 PO; +IBUP-1022 PO
== END ==
LOC: M SOG 07:53
PROVIDERS: ATTEND Orthopaedic Surgery
DX: M25.562 Pain in left knee (principal); M17.12 Unilateral primary osteoarthritis, left knee

== ENCOUNTER → 2022-11-13 | Outpatient (CLI) | payer OTHER ==
[~2022-11-13] MED LIST changes: +CYCL-707 PO; +DICL100G10 TOP; -DICL1GEL3 TOP; +DILT120C42 PO; -DILT1CAP2 PO; -HM S0.65 NARES; +IBUP-1022 PO; +SALI0.6531 NARES
== END ==
LOC: M SOG 07:57
PROVIDERS: ATTEND Orthopaedic Surgery
DX: M17.0 Bilateral primary osteoarthritis of knee (principal)

== ENCOUNTER → 2023-06-18 | Outpatient (CLI) | payer OTHER | LOC: M SOG 08:49 | PROVIDERS: ATTEND Orthopaedic Surgery | DX: M25.561 Pain in right knee (principal); M17.0 Bilateral primary osteoarthritis of knee ==

== ENCOUNTER → 2023-07-23 | Outpatient (CLI) | payer OTHER | LOC: M RAD 10:02 | PROVIDERS: ATTEND Internal Medicine | DX: R91.1 Solitary pulmonary nodule (principal); Z87.891 Personal history of nicotine dependence ==

== ENCOUNTER → 2024-04-19 | Outpatient (CLI) | payer OTHER ==
[~2024-04-19] MED LIST changes: +GABA-1172 PO; -GABA-282 PO
== END ==
LOC: M SOG 07:51
PROVIDERS: ATTEND Orthopaedic Surgery
DX: M17.0 Bilateral primary osteoarthritis of knee (principal)

== ENCOUNTER → 2025-01-15 | Outpatient (REF) ==
[~2025-01-15] MED LIST changes: -IBUP-1022 PO; +IBUP600T42 PO; +LISI40TA10 PO; -LISI40TA4 PO
== END ==
LOC: M PLAIMG 14:41
PROVIDERS: ATTEND Internal Medicine
DX: Z01.89 Encounter for other specified special examinations (principal)